=== PATIENT | female | born 1985 | race Caucasian/White ===

== ENCOUNTER 2016-06-06 10:53 | Emergency (ER) | payer OTHER ==
[~2016-06-06] VITALS: Ht 175.3 cm; Wt 95.0 kg
[2016-06-06 10:55] VITALS: BP 125/78; PULSE 118; RESP 18; TEMP 98.1; O2SAT 99
[2016-06-06] MEDS ORDERED: KETOROLAC TROMETHAMINE 60 MG/2 ML (IM) VIAL IM ONE (11:45)
[2016-06-06] MEDS ORDERED: DEXAMETHASONE SOD PHOS 4 MG/ML VIAL IM ONE (11:45)
[2016-06-06] MEDS ORDERED: ORPHENADRINE INJ 60 MG/2 ML AMP IM ONE (11:45)
[2016-06-06] MEDS ORDERED: ROBA750T PO (11:58)
[2016-06-06] MEDS ORDERED: PRED20 PO (11:58)
[2016-06-06] MEDS ORDERED: DICL50TA PO (11:58)
--- NOTE | 2016-06-06 12:00 | PD ---
HPI Chief Complaint: Back/ Neck Pain or Injury Time Seen by Provider: 11:41 Travel History International Travel<30 days: No Contact w/Intl Traveler<30days: No Traveled to known affect area: No History of Present Illness HPI 30-year-old female presents to the emergency department for evaluation of low back pain. Patient states she's been having intermittent low back pain for approximately 4 months. However, the past few days, has worsened. She states it is now radiating down her left leg. Patient denies a traumatic injury. No fevers or chills. No loss of bowel or bladder control. No saddle anesthesias. Patient is ambulatory, but with pain. Patient states she is taking ibuprofen and Tylenol at home without relief of the pain. The patient reports history PCOS, but is not currently on any prescribed medications. She states she has appointment with her primary care physician on Friday, but need some further pain relief. PFSH Past Medical History Tetanus Vaccination: > 5 Years ?: Not LMP: PCOS Social History Alcohol Use: No Tobacco Use: No Substance Use: No Allergies-Medications (Allergen,Severity, Reaction): Coded Allergies: No Known Allergies (Unverified , 06/06/16) Review of Systems Except as stated in HPI: all other systems reviewed are Neg Physical Exam Narrative GENERAL: Well-developed well-nourished female patient, ambulatory. Afebrile. SKIN: Warm and dry. HEAD: Normocephalic. Atraumatic. EYES: No scleral icterus. No injection or drainage. NECK: Supple, trachea midline. No JVD or lymphadenopathy. CARDIOVASCULAR: Regular rate and rhythm without murmurs, gallops, or rubs. RESPIRATORY: Breath sounds equal bilaterally. No accessory muscle use. Lungs sounds are clear to auscultation. GASTROINTESTINAL: Abdomen soft, non-tender, nondistended. MUSCULOSKELETAL: No cyanosis, or edema. Bilateral upper and lower extremity strength 5/5. All extremities are neurovascularly intact. BACK: No obvious deformity. No CVA tenderness. Patient has tenderness over lower midline spine. Straight leg raise positive on the left side. Data Data Last Documented VS Vital Signs Date Time Temp Pulse Resp B/P Pulse Ox O2 Delivery O2 Flow Rate FiO2 06/06/16 10:55 98.1 118 18 125/78 99 MDM Medical Decision Making Medical Screen Exam Complete: Yes Emergency Medical Condition: Yes Medical Record Reviewed: Yes Differential Diagnosis Sciatica versus muscle strain versus muscle spasm versus herniated disc Narrative Course 30-year-old female presents to the emergency department for evaluation of low back pain that raised on her left leg. Physical exam is consistent with sciatica. No traumatic injury. No red flag symptoms. Patient is tachycardic in triage, most likely due to pain. Patient is given Toradol 60 mg IM, Norflex 60 mg IM, dexamethasone 8 mg IM in the emergency department. Patient is to follow up with her primary care physician on Friday as already planned. She will be discharged with a prescription for diclofenac, Robaxin, prednisone. Patient is agreeable to this. She is return for any acute worsening of symptoms. The patient was discharged in stable condition with instructions, including return instructions and follow up instructions. Diagnosis Primary Impression: Sciatica of left side Referrals: Primary Care Physician call for appointment Patient Instructions: General Instructions, Sciatica (ED) Additional Instructions: Take diclofenac as directed as needed with food for pain. Do not take with other anti-inflammatories including ibuprofen and naproxen. Take Robaxin as instructed as needed for muscle spasm. Take prednisone as directed. Start this tomorrow. Rotate ice/heat. Follow-up with your primary care physician. Return to the emergency department for any acute worsening of symptoms. Med/Other Pt SpecificInfo: Prescription(s) given Scripts Prednisone 20 Mg Tab40 Mg PO DAILY 4 Days Ref 0 Prov:Dina Villafuerte 06/06/16 Methocarbamol (Robaxin)750 Mg [id number] Mg PO TID PRN (MUSCLE SPASM) #21 TAB Ref 0 Prov:Dina Villafuerte 06/06/16 Diclofenac Potassium 50 Mg Tab50 Mg PO TID PRN (PAIN SCALE 1 TO 10) #21 TAB Ref 0 Prov:Dina Villafurete 06/06/16 Disposition: 01 DISCHARGE HOME Condition: Stable Dina Villafuerte Jun 06, 2016 12:00
== END 2016-06-06 12:21 | disposition home or self-care (01) ==
LOC: NEPB 10:53
DX: M54.32 Sciatica, left side (principal)
CPT/HCPCS: 96372; 99282; J1100; J1885; J2360